=== PATIENT | male | born 1995 | race American Indian/Alaskan Native ===

== ENCOUNTER 2019-09-24 17:29 | Emergency (ER) | payer SELFPAY ==
[2019-09-24 17:49] VITALS: BP 125/75
== END 2019-09-24 19:00 | disposition left against medical advice (07) ==
LOC: ED 17:29
DX: M79.644 Pain in right finger(s) (principal); M79.89 Other specified soft tissue disorders; Z53.21 Procedure and treatment not carried out due to patient leaving prior to being seen by health care provider